=== PATIENT | male | born 1940 | race Caucasian/White ===

== ENCOUNTER 2018-11-03 06:46 | Inpatient (IN) | payer OTHER, BC ==
[2018-10-19 12:54] VITALS: BMI 30.8
[2018-11-03] MEDS ORDERED: ceFAZolin SODIUM 1 GM VIAL ONE ×2 (07:09→08:58)
[2018-11-03] MEDS ORDERED: VANCOMYCIN 1,000 MG VIAL (RESTRICTED TO ID ONLY) ONE (07:10)
[2018-11-03] MEDS ORDERED: TRANEXAMIC ACID 1000 MG/10 ML VIAL IVPUSH ONE (07:23)
[2018-11-03] MEDS ORDERED: CEFAZOLIN 2 GM in DEXTROSE 5%-WATER - 50 ML IVPB ONE (07:23)
[2018-11-03] MEDS ORDERED: GABAPENTIN 300 MG CAPSULE (FP) PO ONE (07:23)
[2018-11-03] MEDS ORDERED: CELECOXIB 200 MG CAPSULE PO ONE (07:23)
--- NOTE | 2018-11-03 08:00 | HP ---
Satellite [facility] - Chief Complaint Chief Complaint: left knee djd - Past Medical History Allergies/Adverse Reactions: Allergies Allergy/AdvReac Type Severity Reaction Status Date / Time No Known Drug Allergies Allergy Verified 10/19/18 12:48 - Current Medications Current Medications: Home Medications Medication Instructions Recorded Cyanocobalamin [Vitamin B12 -] 1,000 mcg PO DAILY 10/30/17 Levothyroxine [Synthroid -] 175 mcg PO HS 10/30/17 Satellite Physical Exam - Physical Examination General Appearance: Well Nourished, Well Developed, Alert & Oriented x3 ENT: Clear Lung: Normal air movement Heart: Regular rate & rhythm Extremities: Other (left knee- + swelling, + ttp ,dec rom, nvi xrays show grade 4 tricompartmental djd) Neurological: Intact, Alert, Oriented [facility] Impression/Plan - Impression/Plan Impression: left knee djd Operative Procedure: left krys tkr Date to be Performed: 11/03/18
[2018-11-03] MEDS ORDERED: SODIUM CHLORIDE 0.9% P/F 10 ML VIAL IJ ONE (08:58)
[2018-11-03] MEDS ORDERED: ONDANSETRON 4 MG/2 ML VIAL ONE (08:58)
[2018-11-03] MEDS ORDERED: DEXAMETHASONE SOD PHOSPHATE 4 MG/1 ML VIAL ONE (08:58)
[2018-11-03] MEDS ORDERED: MIDAZOLAM HCL 2 MG/2 ML SINGLE DOSE VIAL ONE (09:01)
[2018-11-03] MEDS ORDERED: BUPIVACAINE LIPOSOME/PF (EXPAREL) 266 MG/20 ML VIAL ONE (09:01)
[2018-11-03] MEDS ORDERED: PROPOFOL 20 ML ONE ×3 (09:57→11:33)
[2018-11-03] MEDS ORDERED: ONDANSETRON 4 MG/2 ML VIAL IVPUSH PRN ×2 (11:03→11:42)
[2018-11-03] MEDS ORDERED: LACTATED RINGERS SOLUTION 1,000 ML IV SCH ×2 (11:15→11:45)
[2018-11-03] MEDS ORDERED: VANCOMYCIN 1,000 MG VIAL (RESTRICTED TO ID ONLY) IVPB ONE (11:15)
[2018-11-03] MEDS ORDERED: MAGNESIUM HYDROX 2400MG/30ML ORAL SUSPENSION 30 ML CUP PO PRN (11:42)
[2018-11-03] MEDS ORDERED: MAG HYDROX/AL HYDROX/SIMETH 30 ML UNIT-DOSE CUP PO PRN (11:42)
--- NOTE | 2018-11-03 11:43 | OP ---
Operative Note - Note: Operative Date: 11/03/18 (tashi) Pre-Operative Diagnosis: left knee djd Operation: left krys tkr Post-Operative Diagnosis: Same as Pre-op Surgeon: Esdras Chester Highway Truck Driver: Paul Cee Anesthesiologist/APPOINTMENT MANAGER: Dany Perez Anesthesia: Spinal, Local Specimens Removed: bone fragments Estimated Blood Loss (mls): 250 Operative Report Dictated: Yes
[2018-11-03] MEDS ORDERED: ACETAMINOPHEN 325 MG TABLET (FP) ONE (12:16)
--- NOTE | 2018-11-03 14:25 | SPEC ---
DATE OF OPERATION: 11/03/2018 PREOPERATIVE DIAGNOSIS: Degenerative joint disease, left knee. POSTOPERATIVE DIAGNOSIS: Degenerative joint disease, left knee. PROCEDURE: Left Press-Fit total knee replacement with robotic-assisted navigation (MAKOplasty). SURGICAL ATTENDING: Esdras Chester MD WOOL HAT FORMING MACHINE TENDER: MEHRDAD Rod ANESTHESIA: Regional and spinal. CLOSURE: A Press-Fit Triathlon knee system with a 7 femur, 7 tibia, 11 polyethylene, a 35 patella; No. 1 Vicryl fascia; 0 and 2-0 for subcutaneous; and 3-0 Monocryl subcuticular with skin glue for skin; 4-0 undyed Vicryl for pin sites. ESTIMATED BLOOD LOSS: About 100 mL. COMPLICATIONS: None. CONDITION: To recovery room in stable condition. DESCRIPTION OF OPERATIVE PROCEDURE: Patient was taken to the operating room on November 03, 2018. Regional and spinal anesthesia was administered by the anesthesiologist. IV Kefzol was administered prophylactically prior to the case as well as TXA. The left lower extremity was prepped and draped in the usual sterile fashion. The midline 10- to 12-cm longitudinal incision was made. Hemostasis was achieved with Bovie cautery. Sharp dissection was carried down to the extensor mechanism which was perform the procedure. Medial parapatellar arthrotomy was then performed, leaving a cuff of tissue for later closure. The patella was inverted, and the knee was flexed up. The fat pad was excised. Subperiosteal dissection was done on the anteromedial proximal tibia until the knee was able to be brought forward. This was facilitated by taking the ACL, PCL and medial and lateral menisci. Checkpoints were placed in both the femur and in the tibia. Two parallel threaded pins were drilled superior to the knee joint through the already made incision from anterior to posterior just going through the anterior cortex but just engaging but not going through the posterior cortex. Two threaded pins were drilled through 2 small stab incisions in parallel fashion 1 handbreadth below the tibial tubercle through the anterior cortex of the tibia and engaging but not going through the posterior cortex. Both sets of pins were attached to navigation arrays for the CAROLEE system. The knee was then registered with the navigation system with center of rotation of the hip, medial and lateral malleoli and multiple sites both on the tibia and on the femur. Confirmation of excellent registration was confirmed by "popping the bubbles." At this time, the knee was thoroughly inspected to remove all osteophytes around the knee. The knee was then tensioned in varus/valgus at both full extension and at 90 degrees of flexion to ascertain our gaps. The virtual position of the components was optimized to ensure equal gaps throughout the range of motion. Once this was performed, the robot was brought into the field, was registered. The bone was cut as per the specifications on both the tibia and on the femur. The box cuts were then made as well. Excellent trial stability was obtained on the femur. The tibial baseplate was allowed to "find itself" and then was clipped into place. Confirmation of excellent external rotation of that component was confirmed by the navigation device as well.The patella was calibered for thickness and cut at the appropriate level. The appropriate lollipop was used to drill 3 holes in the patella and a trial asymmetric patellar button was applied. The knee was taken through a range of motion and found to have excellent stability from full extension to full flexion with excellent tracking of the patella. The trial components were then removed. The lug holes were drilled in the femur. The cementless keel was punched in the tibia. The real Press-Fit components were malleted into place, first with the tibia and then with the femur, and then the patella was crimped into place as well. The real polyethylene liner was then clipped into place. Range of motion, stability and tracking were as described earlier. The knee was thoroughly irrigated with copious amounts of irrigation. Vancomycin powder was placed inside the joint. The medial parapatellar arthrotomy was then closed using No. 1 Vicryl interrupted suture. Post closure of the arthrotomy, the knee was taken through a range of motion and found to have no undue tension on the repair. The subcutaneous was then pulse antibiotic irrigated, closed with 0 and 2-0 Vicryl and 3-0 Monocryl subcuticular with skin glue for the skin. Prior to closure, the checkpoints were removed as were the threaded pins. The tibial pin sites were closed with 4-0 undyed Vicryl. A sterile pressure Aquacel dressing was applied. No tourniquet was used during the case. The total blood loss was approximately 100 mL. No complication. Patient was transferred to recovery in stable condition. Courtney [id number]
[2018-11-03] MEDS: CEFAZOLIN 2 GM/D5W 2 GRAM/50 ML ML IVPB SCH (17:22)
[2018-11-03] MEDS: ACETAMINOPHEN 325 MG TABLET (FP) PO SCH (17:22)
[2018-11-03] MEDS ORDERED: LEVOTHYROXINE NA 75 MCG TABLET (FP) ONE (21:09)
[2018-11-03] MEDS ORDERED: LEVOTHYROXINE NA 100 MCG TABLET (FP) ONE (21:09)
[2018-11-03] MEDS: SENNOSIDES/DOCUSATE COMBO (SENNA PLUS) TABLET (UD) PO SCH (21:24)
[2018-11-03] MEDS: oxyCODONE HCL 10 MG SUSTAINED ACTING TABLET PO SCH (21:24)
[2018-11-03] MEDS: LEVOTHYROXINE 100 MCG, LEVOTHYROXINE 75 MCG PO SCH (21:26)
[2018-11-03] MEDS ORDERED: LEVOTHYROXINE NA 175 MCG TABLET PO SCH (22:00)
[2018-11-04] MEDS: ACETAMINOPHEN 325 MG TABLET (FP) PO SCH ×4 (00:19→17:16)
[2018-11-04] MEDS: CEFAZOLIN 2 GM/D5W 2 GRAM/50 ML ML IVPB SCH (01:59)
[2018-11-04] MEDS: oxyCODONE HCL 5 MG TABLET PO PRN ×4 (02:03→17:16)
[2018-11-04 07:50] LABS: HEMATOCRIT 39.4 % (35.4-49); MCH 31.8 pg (25.7-33.7); MEAN CELL VOLUME 96.3 fl (80-96); MEAN PLT VOLUME 7.7 fl (7.5-11.1); PLATELET COUNT 198 K/MM3 (134-434); RBC 4.09 M/mm3 (4.00-5.60); RDW 12.9 % (11.9-15.9); WHITE BLOOD COUNT 10.5 K/mm3 (4.0-10.8)
--- NOTE | 2018-11-04 08:07 | PN ---
Progress Note (short form) - Note Progress Note: Ortho Pt seen and examined s/p left krys tkr pod #1 Selected Entries 11/04/18 06:00 Temperature 98.3 F Pulse Rate 75 Respiratory 18 Rate Blood Pressure 120/54 L Laboratory Tests 11/04/18 07:42 WBC 10.5 Hgb 13.0 Hct 39.4 Plt Count 198 D dressing c/d/i, calf soft, nt, rom 0-30 nvi a/p PT dvt ppx pain control d/c home tomorrow if stable
[2018-11-04] MEDS: ASPIRIN 325 MG TABLET PO SCH (08:09)
[2018-11-04] MEDS: PANTOPRAZOLE 40 MG TABLET (FP) PO SCH (09:42)
[2018-11-04] MEDS: SENNOSIDES/DOCUSATE COMBO (SENNA PLUS) TABLET (UD) PO SCH ×2 (09:42→21:11)
[2018-11-04] MEDS: MULTIVITAMINS (DAILY MVI) TABLET (FP) PO SCH (09:42)
[2018-11-04] MEDS: oxyCODONE HCL 10 MG SUSTAINED ACTING TABLET PO SCH ×2 (09:42→21:11)
--- NOTE | 2018-11-04 13:22 | PN ---
Progress Note (short form) - Note Progress Note: 78M POD1 s/p left TKR under spinal anesthetic with peripheral nerve blocks. Pt states that pain is well controlled and reports no anesthetic complications. AVSS. Motor and sensory function intact in bilateral lower extremities. Continue current regimen.
[2018-11-04] MEDS: LEVOTHYROXINE 100 MCG, LEVOTHYROXINE 75 MCG PO SCH (21:12)
[2018-11-05] MEDS: ACETAMINOPHEN 325 MG TABLET (FP) PO SCH ×2 (00:31→06:35)
[2018-11-05] MEDS: oxyCODONE HCL 5 MG TABLET PO PRN (06:35)
[2018-11-05 06:42] VITALS: BP 101/67; PULSE 83; TEMP 99.9
[2018-11-05 08:47] LABS: HEMOGLOBIN 12.2 GM/dl (11.7-16.9); MCH 32.7 pg (25.7-33.7); MCHC 33.8 g/dl (32.0-35.9); MEAN CELL VOLUME 96.8 fl (80-96); MEAN PLT VOLUME 8.6 fl (7.5-11.1); PLATELET COUNT 168 K/MM3 (134-434); RBC 3.72 M/mm3 (4.00-5.60); RDW 12.8 % (11.9-15.9); WHITE BLOOD COUNT 10.4 K/mm3 (4.0-10.8)
[2018-11-05] MEDS: SENNOSIDES/DOCUSATE COMBO (SENNA PLUS) TABLET (UD) PO SCH (09:24)
[2018-11-05] MEDS: ASPIRIN 325 MG TABLET PO SCH (09:24)
[2018-11-05] MEDS: MULTIVITAMINS (DAILY MVI) TABLET (FP) PO SCH (09:24)
[2018-11-05] MEDS: PANTOPRAZOLE 40 MG TABLET (FP) PO SCH (09:24)
[2018-11-05] MEDS: oxyCODONE HCL 10 MG SUSTAINED ACTING TABLET PO SCH (09:24)
--- NOTE | 2018-11-05 10:13 | DS ---
Physical Examination Vital Signs: Vital Signs Temperature 99.9 F H 11/05/18 06:00 Pulse Rate 83 11/05/18 06:00 Respiratory Rate 20 11/05/18 06:00 Blood Pressure 101/67 11/05/18 06:00 O2 Sat by Pulse Oximetry (%) 95 11/05/18 06:00 Labs: CBC, BMP 11/05/18 08:10 Discharge Summary Reason For Visit: OSTEOARTHRITIS Procedures: Principal: left tkr Hospital Course: admitted for elective left krys tkr, uneventful post-op, stable for d/c Condition: Good - Instructions Diet, Activity, Other Instructions: Post-op Instructions-Total Knee Replacement Call the office for a follow-up appointment in 1 week - [phone] Aspirin 325mg daily for 6 weeks. Pain medication was sent into your pharmacy. Apply Graduated Compression Stockings (TEDs) to both lower extremities- remove daily for hygiene ONLY Apply Sequential Compression Device (SCDs) to both Lower extremities remove for PT and hygiene ONLY Apply cold packs to affected area for 15 minutes every 2 hours. Physical Therapist will come to your home for the first 5 days. You will be set up with outpatient PT at your first post-operative visit. Patient may ambulate as tolerated-encourage self care (at least every 2-3 hours while awake) with walker or cane Maintain Aquacel (waterproof) dressing to operative wound (will be removed by surgeon at first office visit) Shower with Aquacel dressing in place-if Aquacel integrity compromised, remove and apply dry sterile dressing and notify Orthopedist. DO NOT SHOWER unless Orthopedists approves without Aquacel dressing CONTACT THE OFFICE FOR ANY CHANGE IN YOUR CONDITION (for example-fever greater than 102 degrees, excessive bleeding from operative site, purulent drainage, severe swelling or pain) GO TO THE EMERGENCY ROOM IF THERE IS A MEDICAL EMERGENCY Knee Precautions: * Keep a rolled towel under affected heel while in bed or chair (to keep knee in extension) * Keep affected leg elevated except during mealtimes * DO NOT PLACE PILLOW UNDER AFFECTED KNEE * If you have any questions, please do not hesitate to call the office - [phone]. Referrals: Esdras Chester MD [Staff Physician] - Disposition: VNS/HOME HEALTH CARE - Home Medications Comprehensive Discharge Medication List: Ambulatory Orders Cyanocobalamin [Vitamin B12 -] 1,000 mcg PO DAILY 10/30/17 Levothyroxine [Synthroid -] 175 mcg PO HS 10/30/17 Aspirin [ASA -] 325 mg PO DAILY@0800 tablet 11/03/18 Oxycodone HCl/Acetaminophen [Percocet 5-325 mg Tablet -] 1 - 2 tab PO Q6H #50 tab MDD 8 11/03/18
--- NOTE | 2018-11-05 10:13 | PN ---
Progress Note (short form) - Note Progress Note: Ortho Pt seen and examined s/p left krys tkr pod #2 Selected Entries 11/05/18 06:00 Temperature 99.9 F H Pulse Rate 83 Respiratory 20 Rate Blood Pressure 101/67 Laboratory Tests 11/05/18 08:10 WBC 10.4 Hgb 12.2 Hct 36.0 Plt Count 168 dressing c/d/i, calf soft, nt, rom 0-50 nvi a/p PT dvt ppx pain control d/c home today f/u in 1 week
--- NOTE | 2018-11-09 11:17 | PATH ---
Surgical Pathology Report Patient Name: TRENT WEBER Med. Rec. #: [id number] /Age/Gender: 1940 (Age: 78) / M Account: [id number] Location: [facility] MED-SURG Taken: 11/03/2018 Received: 11/03/2018 Reported: 11/09/2018 Physicians: Esdras Chester M.D. Specimen(s) Received LEFT KNEE BONES Clinical History Left knee osteoarthritis Final Diagnosis KNEE BONES, LEFT, TOTAL KNEE REPLACEMENT: DEGENERATIVE JOINT DISEASE. Electronically Signed Chastity Santiago M.D. Gross Description Received in formalin labeled "left knee bones," is a 12.0 x 10.5 x 2.0 cm aggregate of multiple portions of bone and soft tissue, consistent with knee bones. There is a 2.5 cm greatest dimension area of eburnation present. The remaining articular surfaces are steele-yellow and diffusely granular. The underlying trabecular bone is yellow and hard. Sales Representative Health Insurance sections are submitted in one cassette, following decalcification. 11/04/2018 [facility]11/04/2018
== END 2018-11-05 11:59 | disposition home health service (06) | DRG 470 ==
LOC: FM/S 06:46
PROVIDERS: ADMIT Orthopaedic Surgery; ATTEND Orthopaedic Surgery
PROC: 8E0Y0CZ Robotic Assisted Procedure of Lower Extremity, Open Approach (ICD-10-PCS; 2018-11-03)
PROC: 0SRD0JA Replacement of Left Knee Joint with Synthetic Substitute, Uncemented, Open Approach (ICD-10-PCS; principal; 2018-11-03 09:30)
DX: M17.12 Unilateral primary osteoarthritis, left knee (principal)
CPT/HCPCS: 36415; 73560-TC-LT-FY; 85027; 88304-TC; 88311-TC; 94760; 97116-GP; 97162-GP

== ENCOUNTER 2019-11-02 05:44 | Inpatient (IN) | payer OTHER, BC ==
[2019-11-02] MEDS ORDERED: CEFAZOLIN 3 GM in DEXTROSE 5%-WATER - 100 ML IVPB ONE (06:31)
[2019-11-02] MEDS ORDERED: CELECOXIB 200 MG CAPSULE PO ONE (06:31)
[2019-11-02] MEDS ORDERED: TRANEXAMIC ACID 1000 MG/10 ML VIAL IVPUSH ONE (06:31)
[2019-11-02 06:43] VITALS: BMI 31.4
[2019-11-02] MEDS ORDERED: MIDAZOLAM HCL 2 MG/2 ML SINGLE DOSE VIAL ONE (07:09)
[2019-11-02] MEDS ORDERED: BUPIVACAINE LIPOSOME/PF (EXPAREL) 266 MG/20 ML VIAL ONE (07:10)
[2019-11-02] MEDS ORDERED: SODIUM CHLORIDE 0.9% P/F 10 ML VIAL IJ ONE ×2 (07:10→07:28)
[2019-11-02] MEDS ORDERED: ceFAZolin SODIUM 1 GM VIAL ONE ×4 (07:24→23:55)
[2019-11-02] MEDS ORDERED: VANCOMYCIN 1,000 MG VIAL (RESTRICTED TO ID ONLY) ONE (07:24)
[2019-11-02] MEDS ORDERED: SUCCINYLCHOLINE CHLORIDE 200 MG/10 ML SYRINGE ONE (07:27)
[2019-11-02] MEDS ORDERED: PROPOFOL 20 ML ONE ×3 (07:27→09:53)
[2019-11-02] MEDS ORDERED: ONDANSETRON 4 MG/2 ML VIAL ONE (07:28)
[2019-11-02] MEDS ORDERED: DEXMEDETOMIDINE HCL 200 MCG/2 ML IVPB ONE (07:35)
[2019-11-02] MEDS ORDERED: MAG HYDROX/AL HYDROX/SIMETH 30 ML UNIT-DOSE CUP PO PRN (07:51)
--- NOTE | 2019-11-02 07:58 | HP ---
Satellite [facility] - Chief Complaint Chief Complaint: right knee pain - Past Medical History Allergies/Adverse Reactions: Allergies Allergy/AdvReac Type Severity Reaction Status Date / Time No Known Drug Allergies Allergy Verified 10/15/19 15:47 - Current Medications Current Medications: Home Medications Medication Instructions Recorded Cyanocobalamin [Vitamin B12 -] 1,000 mcg PO DAILY 10/30/17 Levothyroxine [Synthroid -] 150 mcg PO HS 10/30/17 Ferrous Sulfate 325 mg PO DAILY 11/02/19 Polyethylene Glycol 3350 [Miralax 17 gm PO ASDIR PRN 11/02/19 (For Daily Use) -] Satellite Physical Exam - Physical Examination Vital Signs: Vital Signs Period Temp Pulse Resp BP Sys/Luu Pulse Ox Last 24 Hr 98.2 F 92 18 116/84 General Appearance: Well Nourished, Well Developed, Alert & Oriented x3 ENT: Clear Lung: Normal air movement Extremities: Other (right knee- +swelling, + ttp, decr rom, nvi, xrays show grade 4 tricompartmental djd) Neurological: Intact, Alert, Oriented [facility]ellite Impression/Plan - Impression/Plan Impression: right knee djd Operative Procedure: right krys tkr Date to be Performed: 11/02/19
[2019-11-02] MEDS ORDERED: LACTATED RINGERS SOLUTION 1,000 ML IV SCH (08:00)
--- NOTE | 2019-11-02 10:13 | OP ---
Operative Note - Note: Operative Date: 11/02/19 (tashi) Pre-Operative Diagnosis: right knee djd Operation: right krys tkr Post-Operative Diagnosis: Same as Pre-op Surgeon: Esdras Chester Lawn Care Worker: Paul Cee Anesthesiologist/CARPENTER HELPER MAINTENANCE: Dany Perez Anesthesia: Spinal, Local Specimens Removed: bone fragments Estimated Blood Loss (mls): 150 Operative Report Dictated: Yes
[2019-11-02] MEDS ORDERED: ACETAMINOPHEN 325 MG TABLET (FP) ONE (11:00)
[2019-11-02] MEDS ORDERED: oxyCODONE HCL 5 MG TABLET PO PRN (12:59)
[2019-11-02] MEDS: PANTOPRAZOLE 40 MG TABLET (FP) PO SCH (13:07)
[2019-11-02] MEDS: FERROUS SO4 325 MG TABLET (FP) PO SCH (13:07)
[2019-11-02] MEDS: SENNOSIDES/DOCUSATE COMBO (SENNA PLUS) TABLET (UD) PO SCH ×2 (13:07→21:25)
[2019-11-02] MEDS: MULTIVITAMINS (DAILY MVI) TABLET (FP) PO SCH (13:07)
[2019-11-02] MEDS: oxyCODONE HCL 5 MG TABLET PO PRN ×2 (13:58→21:32)
--- NOTE | 2019-11-02 15:20 | SPEC ---
DATE OF OPERATION: 11/02/2019 PREOPERATIVE DIAGNOSIS: Degenerative joint disease, right knee. POSTOPERATIVE DIAGNOSIS: Degenerative joint disease, right knee. PROCEDURE: Right total knee replacement with robotic-assisted navigation (MAKOplasty). SURGICAL ATTENDING: Esdras Chester MD STRAP STITCHER: MEHRDAD Rod ANESTHESIA: Regional and spinal. CLOSURE: A Triathlon Press-Fit knee system with a 6 femur, 7 tibia, 11 polyethylene, a 35 patella; No. 1 Vicryl fascia; 0 and 2-0 for subcutaneous; 3-0 Monocryl subcuticular with skin glue for skin; 4-0 undyed Vicryl for pin sites. ESTIMATED BLOOD LOSS: Less than 100 mL. COMPLICATIONS: None. CONDITION: To recovery room in stable condition. DESCRIPTION OF OPERATIVE PROCEDURE: Patient was taken to the operating room on November 02, 2019. Regional and spinal anesthesia was administered by the anesthesiologist. IV Kefzol was administered prophylactically prior to the case as well as TXA. The right lower extremity was prepped and draped in the usual sterile fashion. The midline 10- to 12-cm longitudinal incision was made. Hemostasis was achieved with Bovie cautery. Sharp dissection was carried down to the extensor mechanism which was perform the procedure. Medial parapatellar arthrotomy was then performed, leaving a cuff of tissue for later closure. The patella was inverted and the knee was flexed up. The fat pad was excised. Subperiosteal dissection was done on the anteromedial proximal tibia until the knee was able to be brought forward. This was facilitated by taking the ACL, PCL and medial and lateral menisci. Checkpoints were placed in both the femur and in the tibia. Two parallel threaded pins were drilled superior to the knee joint through the already made incision from anterior to posterior just going through the anterior cortex but just engaging but not going through the posterior cortex. Two threaded pins were drilled through 2 small stab incisions in parallel fashion 1 handbreadth below the tibial tubercle through the anterior cortex of the tibia and engaging but not going through the posterior cortex. Both sets of pins were attached to navigation arrays for the CAROLEE system. The knee was then registered with the navigation system with center of rotation of the hip, medial and lateral malleoli and multiple sites both on the tibia and on the femur. Confirmation of excellent registration was confirmed by "popping the bubbles." At this time, the knee was thoroughly inspected to remove all osteophytes around the knee. The knee was then tensioned in varus/valgus at both full extension and at 90 degrees of flexion to ascertain our gaps. The virtual position of the components was optimized to ensure equal gaps throughout the range of motion. Once this was performed, the robot was brought into the field, was registered. The bone was cut as per the specifications on both the tibia and on the femur. The box cuts were then made as well. Excellent trial stability was obtained on the femur. The tibial baseplate was allowed to "find itself" and then was clipped into place. Confirmation of excellent external rotation of that component was confirmed by the navigation device as well.The patella was calibered for thickness and cut at the appropriate level. The appropriate lollipop was used to drill 3 holes in the patella and a trial asymmetric patellar button was applied. The knee was taken through a range of motion and found to have excellent stability from full extension to full flexion with excellent tracking of the patella. The trial components were then removed. The lug holes were drilled in the femur. The cementless keel was punched in the tibia. The real Press-Fit components were malleted into place, first with the tibia and then with the femur, and then the patella was crimped into place as well. The real polyethylene liner was then clipped into place. Range of motion, stability and tracking were as described earlier. The knee was thoroughly irrigated with copious amounts of irrigation. Vancomycin powder was placed inside the joint. The medial parapatellar arthrotomy was then closed using No. 1 Vicryl interrupted suture. Post closure of the arthrotomy, the knee was taken through a range of motion and found to have no undue tension on the repair. The subcutaneous was then pulse antibiotic irrigated, closed with 0 and 2-0 Vicryl and 3-0 Monocryl subcuticular with skin glue for the skin. Prior to closure, the checkpoints were removed as were the threaded pins. The tibial pin sites were closed with 4-0 undyed Vicryl. A sterile pressure Aquacel dressing was applied. No tourniquet was used during the case. The total blood loss was approximately 100 mL. No complication. Patient was transferred to recovery in stable condition. Courtney [id number]
[2019-11-02] MEDS ORDERED: DEXTROSE 5%-WATER 100 ML IVPB ONE ×2 (16:27→23:56)
[2019-11-02] MEDS: CEFAZOLIN 3 GM in DEXTROSE 5%-WATER 100 ML IVPB SCH (16:36)
[2019-11-02] MEDS: traMADol HCL 50 MG TABLET PO PRN (17:25)
[2019-11-02] MEDS: ONDANSETRON 4 MG/2 ML VIAL IVPUSH PRN (17:25)
[2019-11-02] MEDS: ACETAMINOPHEN 325 MG TABLET (FP) PO SCH (17:26)
[2019-11-02] MEDS: LEVOTHYROXINE NA 75 MCG TABLET (FP) PO SCH (21:26)
[2019-11-02] MEDS: oxyCODONE HCL 10 MG SUSTAINED ACTING TABLET PO SCH (21:26)
[2019-11-02] MEDS ORDERED: LEVOTHYROXINE PO SCH (22:00)
[2019-11-03] MEDS: CEFAZOLIN 3 GM in DEXTROSE 5%-WATER 100 ML IVPB SCH (00:01)
[2019-11-03] MEDS: ACETAMINOPHEN 325 MG TABLET (FP) PO SCH ×5 (00:02→23:22)
[2019-11-03] MEDS: MAGNESIUM HYDROX 2400MG/30ML ORAL SUSPENSION 30 ML CUP PO PRN (05:58)
[2019-11-03] MEDS: ONDANSETRON 4 MG/2 ML VIAL IVPUSH PRN (06:51)
--- NOTE | 2019-11-03 07:38 | CONSULT ---
Consult - History of Present Illness History of Present Illness: S/P RT KNEE CAROLEE C/O CONSTIPATION NO CP - Past Medical History Cardio/Vascular: Yes: Hyperlipdemia Gastrointestinal: Yes: Constipation, GERD Musculoskeletal: Yes: Osteoarthritis Endocrine: Yes: Hypothyroidism - Alcohol/Substance Use Hx Alcohol Use: No - Smoking History Smoking history: Former smoker Have you smoked in the past 12 months: No If you are a former smoker, when did you quit?: 30 YEARS OF AGE Home Medications - Allergies Allergies/Adverse Reactions: Allergies Allergy/AdvReac Type Severity Reaction Status Date / Time No Known Drug Allergies Allergy Verified 10/15/19 15:47 - Home Medications Home Medications: Ambulatory Orders Cyanocobalamin [Vitamin B12 -] 1,000 mcg PO DAILY 10/30/17 Levothyroxine [Synthroid -] 150 mcg PO HS 10/30/17 Aspirin [ASA -] 325 mg PO DAILY@0800 tablet 11/02/19 Ferrous Sulfate 325 mg PO DAILY 11/02/19 Oxycodone HCl/Acetaminophen [Percocet 5-325 mg Tablet -] 1 - 2 tab PO Q6H #50 tab MDD 8 11/02/19 Polyethylene Glycol 3350 [Miralax 119 gm Btl -] 17 gm PO ASDIR PRN 11/02/19 Review of Systems - Review of Systems Cardiovascular: reports: No Symptoms Respiratory: reports: No Symptoms Gastrointestinal: reports: Constipation. denies: Abdominal Pain Musculoskeletal: reports: Joint Pain, Joint Swelling Neurological: reports: No Symptoms Physical Exam Vital Signs: Vital Signs Temperature 99.8 F H 11/03/19 06:00 Pulse Rate 85 11/03/19 06:00 Respiratory Rate 18 11/03/19 06:00 Blood Pressure 129/62 11/03/19 06:00 O2 Sat by Pulse Oximetry (%) 94 L 11/03/19 06:00 Neck: Yes: Supple Cardiovascular: Yes: Regular Rate and Rhythm Respiratory: Yes: Regular, CTA Bilaterally Gastrointestinal: Yes: Normal Bowel Sounds, Soft. No: Tenderness Musculoskeletal: Yes: Joint Stiffness Wound/Incision: Yes: Dressing Dry and Intact Problem List - Problems (1) S/P knee replacement Assessment/Plan: DVT PROPHYLAXIS PER ORTHO Code(s): Z96.659 - PRESENCE OF UNSPECIFIED ARTIFICIAL KNEE JOINT (2) Hypothyroid Assessment/Plan: TSH CONTINUE WITH SYNTHROID Code(s): E03.9 - HYPOTHYROIDISM, UNSPECIFIED (3) Constipation Assessment/Plan: GIVEN MOM THIS AM ADD MIRALA Code(s): K59.00 - CONSTIPATION, UNSPECIFIED
[2019-11-03 07:56] LABS: HEMATOCRIT 41.6 % (35.4-49); HEMOGLOBIN 13.9 GM/dl (11.7-16.9); MCH 32.3 pg (25.7-33.7); MCHC 33.5 g/dl (32.0-35.9); MEAN CELL VOLUME 96.6 fl (80-96); MEAN PLT VOLUME 8.6 fl (7.5-11.1); PLATELET COUNT 192 K/MM3 (134-434); RDW 12.6 % (11.9-15.9); WHITE BLOOD COUNT 9.8 K/mm3 (4.0-10.8)
--- NOTE | 2019-11-03 09:14 | PN ---
Progress Note (short form) - Note Progress Note: 79M POD1 s/p right TKR under spinal anesthetic with peripheral nerve blocks for post operative pain relief. Pt doing well, states that pain is well controlled. Pt denies any anesthetic complications. AVSS. Continue current regimen.
[2019-11-03] MEDS: oxyCODONE HCL 10 MG SUSTAINED ACTING TABLET PO SCH ×2 (10:11→21:26)
[2019-11-03] MEDS: FERROUS SO4 325 MG TABLET (FP) PO SCH (10:11)
[2019-11-03] MEDS: ASPIRIN 325 MG TABLET PO SCH (10:11)
[2019-11-03] MEDS: SENNOSIDES/DOCUSATE COMBO (SENNA PLUS) TABLET (UD) PO SCH ×2 (10:14→21:26)
[2019-11-03] MEDS: MULTIVITAMINS (DAILY MVI) TABLET (FP) PO SCH (10:15)
[2019-11-03] MEDS: PANTOPRAZOLE 40 MG TABLET (FP) PO SCH (10:15)
[2019-11-03] MEDS: traMADol HCL 50 MG TABLET PO PRN (10:17)
--- NOTE | 2019-11-03 10:21 | PN ---
Progress Note (short form) - Note Progress Note: Ortho Pt seen and examined s/p right krys tkr pod #1 Selected Entries 11/03/19 06:00 Temperature 99.8 F H Pulse Rate 85 Respiratory 18 Rate Blood Pressure 129/62 Laboratory Tests 11/03/19 07:30 WBC 9.8 Hgb 13.9 Hct 41.6 D Plt Count 192 dressing c/d/i, calf soft ,nt rom 0-30, nvi a/p PT dvt ppx pain control d/c home tomorrow if stable
[2019-11-03 12:42] LABS: ALBUMIN 3.2 g/dl (3.4-5.0); BILIRUBIN,TOTAL 1.7 mg/dl (0.2-1); CALCIUM 8.2 mg/dl (8.5-10); CREATININE 1.2 mg/dl (0.55-1.3); POTASSIUM 4.9 mmol/L (3.5-5.1); TOT PROT 5.8 g/dl (6.4-8.2)
[2019-11-03] MEDS: POLYETHYLENE GLYCOL 3350 119 GM BTL PO SCH (21:25)
[2019-11-03] MEDS: LEVOTHYROXINE NA 75 MCG TABLET (FP) PO SCH (21:26)
[2019-11-04] MEDS: ACETAMINOPHEN 325 MG TABLET (FP) PO SCH (05:07)
[2019-11-04 06:30] VITALS: BP 109/92; PULSE 88; TEMP 98.5
[2019-11-04 08:04] LABS: HEMATOCRIT 39.1 % (35.4-49); HEMOGLOBIN 12.9 GM/dl (11.7-16.9); MCH 31.9 pg (25.7-33.7); MCHC 32.9 g/dl (32.0-35.9); MEAN CELL VOLUME 96.8 fl (80-96); MEAN PLT VOLUME 8.6 fl (7.5-11.1); PLATELET COUNT 193 K/MM3 (134-434); RBC 4.04 M/mm3 (4.00-5.60); RDW 12.9 % (11.9-15.9); WHITE BLOOD COUNT 10.3 K/mm3 (4.0-10.8)
[2019-11-04] MEDS: ASPIRIN 325 MG TABLET PO SCH (08:22)
[2019-11-04] MEDS: MAGNESIUM HYDROX 2400MG/30ML ORAL SUSPENSION 30 ML CUP PO PRN (08:23)
--- NOTE | 2019-11-04 08:23 | PN ---
Progress Note (short form) - Note Progress Note: Ortho Pt seen and examined s/p right krys tkr pod #2 Selected Entries 11/04/19 06:00 Temperature 98.5 F Pulse Rate 88 Respiratory 18 Rate Blood Pressure 109/92 Laboratory Tests 11/04/19 07:17 WBC Pending Hgb Pending Hct Pending Plt Count Pending dressing c/d/i, calf soft ,nt rom 0-40, nvi a/p PT dvt ppx pain control d/c home today
--- NOTE | 2019-11-04 08:24 | DS ---
Physical Examination Vital Signs: Vital Signs Temperature 98.5 F 11/04/19 06:00 Pulse Rate 88 11/04/19 06:00 Respiratory Rate 18 11/04/19 06:00 Blood Pressure 109/92 11/04/19 06:00 O2 Sat by Pulse Oximetry (%) 99 11/04/19 06:00 Labs: CBC, BMP 11/03/19 12:09 Discharge Summary Problems reviewed: Yes Reason For Visit: OSTEOARTHRITIS Current Active Problems Constipation (Acute) Hypothyroid (Acute) S/P knee replacement (Acute) Procedures: Principal: right tkr Hospital Course: admitted for elective right krys tkr, post-op as per protocol, stable for d/c Condition: Good - Instructions Diet, Activity, Other Instructions: Post-op Instructions-Total Knee Replacement Call the office for a follow-up appointment in 1 week - [phone] Aspirin 325mg daily for 6 weeks. Pain medication was sent into your pharmacy. Apply Graduated Compression Stockings (TEDs) to both lower extremities- remove daily for hygiene ONLY Apply Sequential Compression Device (SCDs) to both Lower extremities remove for PT and hygiene ONLY Apply cold packs to affected area for 15 minutes every 2 hours. Physical Therapist will come to your home for the first 5 days. You will be set up with outpatient PT at your first post-operative visit. Patient may ambulate as tolerated-encourage self care (at least every 2-3 hours while awake) with walker or cane Maintain Aquacel (waterproof) dressing to operative wound (will be removed by surgeon at first office visit) Shower with Aquacel dressing in place-if Aquacel integrity compromised, remove and apply dry sterile dressing and notify Orthopedist. DO NOT SHOWER unless Orthopedists approves without Aquacel dressing CONTACT THE OFFICE FOR ANY CHANGE IN YOUR CONDITION (for example-fever greater than 102 degrees, excessive bleeding from operative site, purulent drainage, severe swelling or pain) GO TO THE EMERGENCY ROOM IF THERE IS A MEDICAL EMERGENCY Knee Precautions: * Keep a rolled towel under affected heel while in bed or chair (to keep knee in extension) * Keep affected leg elevated except during mealtimes * DO NOT PLACE PILLOW UNDER AFFECTED KNEE * If you have any questions, please do not hesitate to call the office - [phone]. Referrals: Esdras Chester MD [Staff Physician] - Disposition: VNS/HOME HEALTH CARE - Home Medications Comprehensive Discharge Medication List: Ambulatory Orders Cyanocobalamin [Vitamin B12 -] 1,000 mcg PO DAILY 10/30/17 Levothyroxine [Synthroid -] 150 mcg PO HS 10/30/17 Aspirin [ASA -] 325 mg PO DAILY@0800 tablet 11/02/19 Ferrous Sulfate 325 mg PO DAILY 11/02/19 Oxycodone HCl/Acetaminophen [Percocet 5-325 mg Tablet -] 1 - 2 tab PO Q6H #50 tab MDD 8 11/02/19 Polyethylene Glycol 3350 [Miralax 119 gm Btl -] 17 gm PO ASDIR PRN 11/02/19 Oxycodone HCl/Acetaminophen [Percocet 5-325 mg Tablet -] 1 - 2 tab PO Q6H #50 tab MDD 8 11/04/19
[2019-11-04] MEDS: ONDANSETRON 4 MG/2 ML VIAL IVPUSH PRN (08:26)
[2019-11-04] MEDS: POLYETHYLENE GLYCOL 3350 119 GM BTL PO SCH (09:31)
[2019-11-04] MEDS: FERROUS SO4 325 MG TABLET (FP) PO SCH (09:31)
[2019-11-04] MEDS: oxyCODONE HCL 10 MG SUSTAINED ACTING TABLET PO SCH (09:31)
[2019-11-04] MEDS: SENNOSIDES/DOCUSATE COMBO (SENNA PLUS) TABLET (UD) PO SCH (09:32)
[2019-11-04] MEDS: MULTIVITAMINS (DAILY MVI) TABLET (FP) PO SCH (09:33)
[2019-11-04] MEDS: PANTOPRAZOLE 40 MG TABLET (FP) PO SCH (09:33)
--- NOTE | 2019-11-04 10:04 | PN ---
Progress Note (short form) - Note Progress Note: PATIENT SEEN AND EXAMINED IN PHYSICAL THERAPY DENIES CP/SOB, NO FEVERS +FLATULENCE NO BOWEL MOVEMENT YET PT REPORTS THAT PAIN KILLERS HAVE CONSTIPATED HIM BUT FEELS COMFORTABLE. S/P KNEE REPLACEMENT TO BE DC TODAY HOME WITH LEGAL COLLECTOR PT TO SEE HIS PMD NEXT WEEK AND ORTHOPEDIC F/U.
--- NOTE | 2019-11-04 17:09 | PATH ---
Surgical Pathology Report Patient Name: TRENT WEBER Med. Rec. #: [id number] /Age/Gender: 1940 (Age: 79) / M Account: [id number] Location: [facility] [place] MED-SURG Taken: 11/02/2019 Received: 11/02/2019 Reported: 11/04/2019 Physicians: Esdras Chester M.D. Specimen(s) Received BONE RIGHT KNEE Clinical History Osteoarthritis right knee Final Diagnosis BONES, RIGHT KNEE, RESECTION: DEGENERATIVE JOINT DISEASE, RIGHT KNEE. Electronically Signed Lee Crane M.D. Gross Description Received in formalin labeled "bones right knee," is a 14.0 x 12.0 x 2.0 cm aggregate of multiple portions of bone and soft tissue. The tibial plateau measures 7.9 x 6.5 x 2.0 cm. There are multiple areas of eburnation present, measuring up to 3.5 cm in greatest dimension. The remaining articular surfaces are steele-brown and diffusely granular. The underlying trabecular bone is yellow and hard. Forming Process Line Worker sections are submitted in one cassette, following decalcification. 11/03/2019 [facility]11/03/2019
== END 2019-11-04 11:31 | disposition home health service (06) | DRG 470 ==
LOC: FM/S 05:44
PROVIDERS: ADMIT Orthopaedic Surgery; ATTEND Orthopaedic Surgery
PROC: 8E0Y0CZ Robotic Assisted Procedure of Lower Extremity, Open Approach (ICD-10-PCS; 2019-11-02)
PROC: 0SRC06A Replacement of Right Knee Joint with Oxidized Zirconium on Polyethylene Synthetic Substitute, Uncemented, Open Approach (ICD-10-PCS; principal; 2019-11-02 08:39)
DX: M17.11 Unilateral primary osteoarthritis, right knee (principal); K59.00 Constipation, unspecified; E03.9 Hypothyroidism, unspecified
CPT/HCPCS: 36415; 73560-TC-RT-FY; 80053; 84443; 85027; 94760; 97116-GP; 97163-GP